=== PATIENT | male | born 1955 | race Caucasian/White ===

== ENCOUNTER → 2018-06-05 09:59 | Outpatient (CLI) | payer BC, SELFPAY ==
[2018-06-05 14:43] VITALS: PULSE 72; PULSE 78
== END ==
PROVIDERS: PCP Physician Assistant; Visit Provider Internal Medicine Cardiovascular Disease
DX: I42.9 Cardiomyopathy, unspecified (principal)
CPT/HCPCS: 94060; 94640; 94726; 94729

== ENCOUNTER → 2019-02-20 10:10 | Outpatient (CLI) | payer BC, SELFPAY ==
--- NOTE | 2019-02-20 10:16 | XR_ITS ---
EXAM: XR lumbar spine min 4V HISTORY: ITS.REASON: Low back pain ORDERING PHYSICIAN: MANUEL Ortiz PATIENT AGE: 63 years COMPARISON: 12/31/2015 FINDINGS: There is normal alignment. No acute fracture or dislocation. Small anterior osteophytes are present at L5 L4 L3 L2 and L1. These are somewhat more prominent than when compared to the previous exam. The disc spaces are well-preserved. IMPRESSION: Degenerative changes with osteophytosis which is slightly worse.
[2019-02-20 14:22] LABS: Basophils % 0.4 % (0.1-2.0); Eosinophils # 0.2 K/mm3 (0.0-0.4); Eosinophils % 2.7 % (0.1-12.0); Hematocrit 52.2 % (42.0-52.0); Hemoglobin 17.8 g/dL (14.1-18.0); Lymphocytes # 2.2 K/mm3 (0.7-4.5); Lymphocytes % 25.7 % (10-50); Mean Corpuscular HGB Conc 34.1 g/dL (31.8-35.4); Mean Corpuscular Hemoglobin 30.7 pg (27.0-31.2); Mean Corpuscular Volume 90.1 fl (80-94); Mean Platelet Volume 8.1 fl (7.4-10.4); Monocytes # 0.6 K/mm3 (0.1-1.0); Monocytes % 7.2 % (1.7-9.3); Neutrophils # 5.4 K/mm3 (1.8-7.8); Platelet Count 312 K/mm3 (142-424); Red Blood Count 5.79 M/mm3 (4.60-6.20); White Blood Count 8.5 K/mm3 (4.8-10.8)
[2019-02-20 15:33] LABS: Alanine Aminotransferase 35 U/L (12-78); Albumin/Globulin Ratio 1.2 (1.1-1.8); Alkaline Phosphatase 78 U/L (46-116); Anion Gap 17.4 mEq/L (5-15); Aspartate Amino Transferase 22 U/L (15-37); Bilirubin,Total 0.9 mg/dL (0.2-1.0); Blood Urea Nitrogen 11 mg/dL (7-18); Calcium 9.8 mg/dL (8.5-10.1); Carbon Dioxide 27 mmol/L (21.0-32.0); Chloride 100 mmol/L (98-107); Chol/HDL Ratio 4.1 (1-3.5); Cholesterol 248 mg/dL (140-200); Creatinine,Serum 0.99 mg/dL (0.70-1.30); Estimated Glomerular Filt Rate 77 ml/min (>60); GFR (African American) 93 ML/MIN (>60); Globulin 3.4 gm/dl (1.3-3.2); Glucose 111 mg/dL (74-106); HDL Cholesterol 61 mg/dL (27-67); LDL Cholesterol 158 mg/dL (0-130); Potassium 4.4 mmoL/L (3.5-5.1); Sodium 140 mmol/L (136-145); T4 (Thyroxine) 8.9 ug/dl (4.7-13.3); Thyroid Stimulating Hormone 0.89 uIU/ml (0.358-3.740); Total Protein,Serum 7.4 gm/dL (6.4-8.2); Triglycerides 147 mg/dL (30-200); VLDL Cholesterol 29 mg/dL (0-40)
[2019-02-23 20:39] LABS: PSA, Free 0.42 ng/mL; Prostate Specific Ag 3.3 ng/mL (0.0-4.0); Vitamin D 25 Hydroxy 18.8 ng/mL (30.0-100.0)
== END ==
PROVIDERS: PCP Emergency Medicine; Visit Provider Physician Assistant
DX: M54.5 Low back pain (principal); I10 Essential (primary) hypertension
CPT/HCPCS: 72110; 80053; 80061; 82652; 84153; 84154; 84436; 84443; 85025

== ENCOUNTER → 2019-03-02 10:27 | Outpatient (CLI) | payer BC, SELFPAY | PROVIDERS: PCP Emergency Medicine; Visit Provider Internal Medicine Cardiovascular Disease | DX: I48.92 Unspecified atrial flutter (principal); R06.09 Other forms of dyspnea; G40.909 Epilepsy, unspecified, not intractable, without status epilepticus; G47.33 Obstructive sleep apnea (adult) (pediatric); I10 Essential (primary) hypertension; J44.9 Chronic obstructive pulmonary disease, unspecified; K21.9 Gastro-esophageal reflux disease without esophagitis; R60.9 Edema, unspecified; F17.200 Nicotine dependence, unspecified, uncomplicated | CPT/HCPCS: 36415; 83880; 93270 ==

== ENCOUNTER → 2019-03-05 12:59 | Outpatient (CLI) | payer BC, SELFPAY ==
--- NOTE | 2019-03-05 13:06 | MR_ITS ---
MR lumbar spine wo con, MR 3-d myelogram/MRCP HISTORY: LBP XYRS. LT leg pain, numbness, and tingling. ITS.REASON: back pain ORDERING PHYSICIAN: MANUEL Ortiz PATIENT AGE: 63 years Comparison: X-ray 02-20-19. MRI 02-12-16. TECHNIQUE: Standard multiplanar multiecho sequences are performed without contrast. 3-D MIP and myelographic images are also rendered and reviewed FINDINGS: There is normal alignment. The spinal cord ends at the L1 level. T11-T12: Mild degenerative disc disease with very minimal central disc protrusion without impingement. T12-L1: Mild degenerative disc disease. L1-L2: Unremarkable. L2-L3: Unremarkable. L3-L4: Unremarkable. L4-5: Mild concentric bulging disc. There is a new small to medium-sized broad-based right foraminal and right lateral disc protrusion with associated osteophyte with moderate right-sided foraminal narrowing. L5-S1: There is a small left paracentral disc protrusion/herniation abutting the anteromedial aspect of the left S1 nerve root. Previously there was a small disc protrusion at this area. This is now slightly larger and with increased T2 signal. T2 hyperintensity once again noted involving the L3 and L4 vertebral body inlet to the previous exam consistent with hemangiomas. IMPRESSION: 1. L4-5: Mild concentric bulging disc. There is a new small to medium-sized broad-based right foraminal and right lateral disc protrusion with associated osteophyte with moderate right-sided foraminal narrowing. 2. L5-S1: There is a small left paracentral disc protrusion/herniation abutting the anteromedial aspect of the left S1 nerve root. Previously there was a small disc protrusion at this area. This is now slightly larger and with increased T2 signal
== END ==
PROVIDERS: PCP Physician Assistant; Visit Provider Physician Assistant
DX: M54.16 Radiculopathy, lumbar region (principal)
CPT/HCPCS: 72148; 76376; 93270

== ENCOUNTER → 2019-03-14 12:25 | Outpatient (CLI) | payer BC, SELFPAY ==
--- NOTE | 2019-03-14 12:27 | CA_ITS ---
PROCEDURE: 2-D M-mode and color Doppler study INDICATIONS FOR THE TEST: Chest pain COPD+ Heart Murmur Tobacco Smoking+ Palpitations Fatigue Syncope Edema+ Hypertension+Diabetes Mellitus Rheumatic Fever SOB+MOCTEZUMA+Obesity Hyperlipidemia+ Family History HD Additional History BALDO, ABLATION 2018, AFIB PATIENT INFORMATION HEIGHT: 69 WEIGHT:186 GENDER: Male B/P:109/69 2-D/M-MODE INTERPRETATION: 2-D MEASUREMENTS OBSERVED VALUES IN CMS Right Ventricular Dimension (RVDd) 3.0 Interventricular Septum (Thickness)(IVsd) 1.1 Left Ventricular Internal Dimensions(LVIDd) 4.4 Left Ventricular Posterior Wall (Thickness)(LVPWd) 0.8 Aortic Root 3.3 Aortic Cusp Separation 2.1 Left Atrial Dimensions (LAD) 3.9 2D 1. Left atrium is mildly enlarged, left ventricle is normal size, there is mild concentric left ventricular hypertrophy, visually estimated ejection fraction 55% with no regional wall motion abnormality. 2. The right atrium and right ventricle are mildly enlarged with normal contractility. 3. The aortic valve is minimally thickened and fibrosed. 4. The mitral and tricuspid valve leaflets are minimally thickened. 5. The pulmonic valve is poorly visualized. 6. No significant pericardial effusion noted. DOPPLER INTERROGATION: Doppler interrogation of the aortic, mitral and tricuspid valvular presence of mild mitral and tricuspid regurgitation, tricuspid regurgitation jet velocity is inadequate for calculation of the right ventricular systolic pressure, grade 1 diastolic dysfunction seen without tissue Doppler evidence of raised left atrial pressure. Inferior vena cava is not well visualized. CONCLUSION: 1. Biatrial enlargement, normal left ventricular size, mild concentric left ventricular hypertrophy, visually estimated ejection fraction 55% with no regional wall motion abnormality, grade 1 diastolic dysfunction seen without tissue Doppler evidence of raised left atrial pressure. 2. Mildly enlarged right ventricle with normal contractility. 3. Mild mitral and tricuspid regurgitation, tricuspid regurgitation jet velocity is inadequate for calculation of the right ventricular systolic pressure, inferior vena cava is not well visualized. 4. No significant pericardial effusion noted.
== END ==
PROVIDERS: PCP Emergency Medicine; Visit Provider Internal Medicine Cardiovascular Disease
DX: R06.09 Other forms of dyspnea (principal); R60.9 Edema, unspecified; I48.92 Unspecified atrial flutter; G40.909 Epilepsy, unspecified, not intractable, without status epilepticus; G47.33 Obstructive sleep apnea (adult) (pediatric); I10 Essential (primary) hypertension; J44.9 Chronic obstructive pulmonary disease, unspecified; K21.9 Gastro-esophageal reflux disease without esophagitis; F17.200 Nicotine dependence, unspecified, uncomplicated
CPT/HCPCS: 93306

== ENCOUNTER → 2019-03-26 10:50 | Outpatient (POV) | payer BC, SELFPAY ==
[2019-03-26 10:59] VITALS: BP 188/95; PULSE 97; RESP 18; O2SAT 98; BMI 27.3
--- NOTE | 2019-03-26 11:19 | HMH.PMCON ---
Assessment and Plan (1) Lumbar degenerative disc disease Current visit: No Status: Chronic Category: Medical Code(s): M51.36 - Other intervertebral disc degeneration, lumbar region (2) Lumbar radiculopathy Current visit: No Status: Chronic Category: Medical Code(s): M54.16 - Radiculopathy, lumbar region (3) Lumbar radiculopathy, chronic Current visit: No Status: Chronic Category: Medical Code(s): M54.16 - Radiculopathy, lumbar region - Assessment and plan all Dx Assessment and Plan for all problems:: We will schedule the patient for an L4-L5 lumbar epidural steroid injection. I believe it would be beneficial given his symptomology. Patient and I had a discussion in regards to the procedure and he understands and would like to move forward. Patient denies any anticoagulation therapy. He is continuing a home stretching program. He has had this pain for over 6 months. Patient has failed other conservative measures. Dr. Capone has reviewed this note and agrees with this plan of care. This note was dictated using voice recognition software and may contain errors or omissions HPI - Data of Consult Consult date: 03/26/19 Requesting Physician: Suellen Sims APRN Primary Care Provider: MANUEL Ortiz - Consult Narrative Reason for consult: Back pain History of present illness: Mr. Daily is a 63 year old male who presents today for consultation in regards to his low back pain. Patient has had recent physical therapy with no relief of his back pain. He states his pain is been around for about 30 years and usually comes and goes however at this time it seems to worsen and remained. He is unable to take anti-inflammatories due to heart problems. He is not on any anticoagulation therapy. Patient had a recent MRI showing disc bulge at L4-L5 L5-S1 along with a herniation abutting the anterior medial aspect of the left S1 nerve root. Most of the patient's pain is in his left side rating down to his left toes. Patient does have a positive left straight leg raise test. Patient does have an appointment with Dr. Gamez. Patient and I discussed epidural injections. Dr. Capone has reviewed this note and agrees with this plan of care. This note was dictated using voice recognition software and may contain errors or omissions to CC: Suellen Sims APRN [facility] History I have reviewed the patient's past medical history: Yes Medical History: Reports:: Arrhythmia, Atrial Fibrillation, Gastroesophageal Reflux Disease(GERD), Hyperlipidemia, Myocardial Infarction, Seizures *Have you ever received a pneumonia vaccine?: No *Have you received a flu vaccine this season?: No Other Medical History: Reports: Arthritis, Other Other Surgeries: Yes: No Previous Surgery, Cardiac Catheterization, Colonoscopy Amputation: No Fractures: Yes - *Social History Smoking Status: Current every day smoker Tobacco Type: cigarettes # Packs/Day (cigarettes): 1 #Yrs smoked (if former smoker): 45 Alcohol Intake: never Alcohol Intake Frequency:: holidays/special occasions only Substance Use Type: denies use *Occupational Status:: other Housing: house Household Members: none *Travel in the last 8 weeks: None Family Hx:: Heart Attack, Diabetes Review of Systems - Review of Systems ROS General: no recent weight change, no fever, no sleep disturbances Respiratory: no cough, no shortness of air, no recurring pulmonary infections Cardiovascular/Peripheral Vascular: No chest pain, No palpitations, no edema, no shortness of breath. Gastrointestinal: no incontinence, normal bowel movements reported Genitourinary: no incontinence Musculoskeletal: Back pain, leg pain Psychiatric: normal mood/ affect Neurological: [denies weakness in extremities], [denies balance issues] Meds Home Medications Medication Instructions Recorded Confirmed Type esomeprazole magnesium 20 mg 20 mg PO DAILY #90 tab 02/20/19 03/26/19 Rx t
--- NOTE | 2019-03-26 11:22 | P.CONS_ITS ---
Assessment and Plan (1) Lumbar degenerative disc disease Current visit: No Status: Chronic Category: Medical Code(s): M51.36 - Other intervertebral disc degeneration, lumbar region (2) Lumbar radiculopathy Current visit: No Status: Chronic Category: Medical Code(s): M54.16 - Radiculopathy, lumbar region (3) Lumbar radiculopathy, chronic Current visit: No Status: Chronic Category: Medical Code(s): M54.16 - Radiculopathy, lumbar region - Assessment and plan all Dx Assessment and Plan for all problems:: We will schedule the patient for an L4-L5 lumbar epidural steroid injection. I believe it would be beneficial given his symptomology. Patient and I had a discussion in regards to the procedure and he understands and would like to move forward. Patient denies any anticoagulation therapy. He is continuing a home stretching program. He has had this pain for over 6 months. Patient has failed other conservative measures. Dr. Capone has reviewed this note and agrees with this plan of care. This note was dictated using voice recognition software and may contain errors or omissions HPI - Data of Consult Consult date: 03/26/19 Requesting Physician: Suellen Sims APRN Primary Care Provider: MANUEL Ortiz - Consult Narrative Reason for consult: Back pain History of present illness: Mr. Daily is a 63 year old male who presents today for consultation in regards to his low back pain. Patient has had recent physical therapy with no relief of his back pain. He states his pain is been around for about 30 years and usually comes and goes however at this time it seems to worsen and remained. He is unable to take anti-inflammatories due to heart problems. He is not on any anticoagulation therapy. Patient had a recent MRI showing disc bulge at L4-L5 L5-S1 along with a herniation abutting the anterior medial aspect of the left S1 nerve root. Most of the patient's pain is in his left side rating down to his left toes. Patient does have a positive left straight leg raise test. Patient does have an appointment with Dr. Gamez. Patient and I discussed epidural injections. Dr. Capone has reviewed this note and agrees with this plan of care. This note was dictated using voice recognition software and may contain errors or omissions to CC: Suellen Sims APRN [facility] History I have reviewed the patient's past medical history: Yes Medical History: Reports:: Arrhythmia, Atrial Fibrillation, Gastroesophageal Reflux Disease(GERD), Hyperlipidemia, Myocardial Infarction, Seizures *Have you ever received a pneumonia vaccine?: No *Have you received a flu vaccine this season?: No Other Medical History: Reports: Arthritis, Other Other Surgeries: Yes: No Previous Surgery, Cardiac Catheterization, Colonoscopy Amputation: No Fractures: Yes - *Social History Smoking Status: Current every day smoker Tobacco Type: cigarettes # Packs/Day (cigarettes): 1 #Yrs smoked (if former smoker): 45 Alcohol Intake: never Alcohol Intake Frequency:: holidays/special occasions only Substance Use Type: denies use *Occupational Status:: other Housing: house Household Members: none *Travel in the last 8 weeks: None Family Hx:: Heart Attack, Diabetes Review of Systems - Review of Systems ROS General: no recent weight change, no fever, no sleep disturbances Respiratory: no cough, no shortness of air, no recurring pulmonary infections Cardiovascular/Peripheral Vascular: No chest pain, No palpitations, no edema, no shortness of breath. Gastrointestinal: no incontinence, normal bowel mov
== END ==
PROVIDERS: PCP Physician Assistant; Visit Provider Clinical Nurse Specialist Family Health
DX: M51.16 Intervertebral disc disorders with radiculopathy, lumbar region (principal)
CPT/HCPCS: 99202

== ENCOUNTER → 2019-04-24 10:00 | Outpatient (CLI) | payer BC, SELFPAY ==
[2019-04-24 11:42] LABS: Alanine Aminotransferase 46 U/L (12-78); Albumin Level 3.8 gm/dL (3.4-5.0); Alkaline Phosphatase 124 U/L (46-116); Aspartate Amino Transferase 23 U/L (15-37); Bilirubin,Direct 0.2 mg/dL (0.0-0.2); Bilirubin,Indirect 0.4 mg/dL (0.0-0.9); Bilirubin,Total 0.6 mg/dL (0.2-1.0); Chol/HDL Ratio 2.2 (1-3.5); Cholesterol 147 mg/dL (140-200); HDL Cholesterol 68 mg/dL (27-67); LDL Cholesterol 66 mg/dL (0-130); Total Protein,Serum 7.2 gm/dL (6.4-8.2); Triglycerides 66 mg/dL (30-200); VLDL Cholesterol 13 mg/dL (0-40)
== END ==
PROVIDERS: Visit Provider Internal Medicine Cardiovascular Disease
DX: R06.09 Other forms of dyspnea (principal); R60.9 Edema, unspecified; G40.909 Epilepsy, unspecified, not intractable, without status epilepticus; I10 Essential (primary) hypertension; I48.0 Paroxysmal atrial fibrillation; J44.9 Chronic obstructive pulmonary disease, unspecified; K21.9 Gastro-esophageal reflux disease without esophagitis; F17.200 Nicotine dependence, unspecified, uncomplicated; G47.33 Obstructive sleep apnea (adult) (pediatric)
CPT/HCPCS: 36415; 80061; 80076

== ENCOUNTER → 2019-04-24 10:10 | Outpatient (POV) | payer BC, SELFPAY ==
[2019-04-24 10:34] VITALS: BP 137/88; PULSE 69; RESP 18; O2SAT 99; BMI 24.3
--- NOTE | 2019-04-24 10:47 | HMH.PAINSOAP ---
[facility] Pain Management SOAP Note Subjective:: Patient is a pleasant 63-year-old white female who presents today for follow-up after lumbar epidural steroid injection. Patient states he got good relief for a week and a several days after the injection. He rates his pain today 5 out of 10. We talked about typically doing a set of 3 injections however he is uninterested in any injective therapy that we can offer her physical therapy or any other modes of care we can provide. He states he is been seen by a neurosurgeon and was deemed not a candidate for surgery. ROS General: no recent weight change, no fever, no sleep disturbances Respiratory: no cough, no shortness of air, no recurring pulmonary infections Cardiovascular/Peripheral Vascular: No chest pain, No palpitations, no edema, no shortness of breath. Gastrointestinal: no incontinence, normal bowel movements reported Genitourinary: no incontinence Musculoskeletal: Back pain, leg pain Psychiatric: normal mood/ affect Neurological: [denies weakness in extremities], [denies balance issues] Objective:: Physical Exam General: Alert and oriented x3, no acute distress, pleasant and cooperative, [on room air] Lungs: Resps E/U, Symmetrical chest expansion, Eyes: PERRL Musculoskeletal: Flexion and extension of lumbar spine somewhat guarded secondary to pain, deep tendon reflexes normal, strength in upper and lower extremities [5/5], slightly antalgic gait noted Neurological: speech clear, chief strategy officer equal, no gross sensory deficits Assessment:: Degenerative disc disease lumbar spine with lumbar radiculopathy Plan:: Patient is uninterested in any further services that we can provide. He has been instructed that he can call our office if the changes his mind. Dr. Capone has reviewed this note and agrees with this plan of care. This note was dictated using voice recognition software and may contain errors or omissions Pain Management Hx Components *Have you ever received a pneumonia vaccine?: No *Have you received a flu vaccine this season?: Yes - *Social History *Occupational Status:: other *Travel in the last 8 weeks: None
== END ==
PROVIDERS: PCP Physician Assistant; Visit Provider Clinical Nurse Specialist Family Health
DX: M51.16 Intervertebral disc disorders with radiculopathy, lumbar region (principal)
CPT/HCPCS: 99212

== ENCOUNTER → 2019-05-09 08:52 | Outpatient (CLI) | payer BC, SELFPAY ==
[2019-05-09 10:17] LABS: Gamma Glutamyl Transpeptidase 41 U/L (15-85)
== END ==
PROVIDERS: Physician Assistant; Visit Provider Internal Medicine
DX: R74.8 Abnormal levels of other serum enzymes (principal)
CPT/HCPCS: 36415; 82977

== ENCOUNTER → 2019-10-30 13:30 | Outpatient (CLI) | payer BC, SELFPAY ==
[2019-10-30 13:37] LABS: Basophils # 0.1 K/mm3 (0-0.2); Basophils % 0.6 % (0.1-2.0); Eosinophils # 0.3 K/mm3 (0.0-0.4); Eosinophils % 3.1 % (0.1-12.0); Hematocrit 48.5 % (42.0-52.0); Hemoglobin 15.5 g/dL (14.1-18.0); Lymphocytes # 1.9 K/mm3 (0.7-4.5); Lymphocytes % 22.8 % (10-50); Mean Corpuscular Hemoglobin 30.4 pg (27.0-31.2); Mean Platelet Volume 8.9 fl (7.4-10.4); Monocytes # 0.6 K/mm3 (0.1-1.0); Monocytes % 7.1 % (1.7-9.3); Neutrophils # 5.4 K/mm3 (1.8-7.8); Neutrophils % 66.5 % (37.0-80.0); Platelet Count 277 K/mm3 (142-424); Red Blood Count 5.11 M/mm3 (4.60-6.20); Red Cell Distribution Width 13.2 % (11.5-17.5); White Blood Count 8.2 K/mm3 (4.8-10.8)
[2019-10-30 14:40] LABS: Alanine Aminotransferase 33 U/L (21-72); Albumin Level 3.8 g/dL (3.4-5.0); Albumin/Globulin Ratio 1.3 (1.1-1.8); Alkaline Phosphatase 102 U/L (46-116); Anion Gap 14.1 mEq/L (5-15); Aspartate Amino Transferase 22 U/L (15-37); Bilirubin,Total 0.4 mg/dL (0.2-1.0); Blood Urea Nitrogen 11 mg/dL (7-18); Calcium 9.4 mg/dL (8.5-10.1); Carbon Dioxide 28 mmol/L (21.0-32.0); Chloride 109 mmol/L (98-107); Chol/HDL Ratio 2.3 (1-3.5); Cholesterol 123 mg/dL (140-200); Creatinine,Serum 0.81 mg/dL (0.70-1.30); Estimated Glomerular Filt Rate 97 ml/min (>60); GFR (African American) 117 ML/MIN (>60); Globulin 2.9 gm/dl (1.3-3.2); Glucose 110 mg/dL (74-106); HDL Cholesterol 54 mg/dL (27-67); LDL Cholesterol 61 mg/dL (0-130); Potassium 5.1 mmoL/L (3.5-5.1); Sodium 146 mmol/L (137-145); T4 (Thyroxine) 6.3 ug/dl (4.7-13.3); Thyroid Stimulating Hormone 1.25 uIU/ml (0.358-3.740); Total Protein,Serum 6.7 g/dL (6.4-8.2); Triglycerides 39 mg/dL (30-200); VLDL Cholesterol 8 mg/dL (0-40)
[2019-10-31 16:30] LABS: Vitamin B12 329 pg/mL (232-1245)
== END ==
PROVIDERS: Visit Provider Physician Assistant
DX: I10 Essential (primary) hypertension (principal); E55.9 Vitamin D deficiency, unspecified; D51.9 Vitamin B12 deficiency anemia, unspecified
CPT/HCPCS: 80053; 80061; 82607; 82652; 84436; 84443; 85025

== ENCOUNTER 2023-08-31 16:22 | Emergency (ER) | payer MEDICARE, BC, SELFPAY ==
[2023-08-31] VITALS (7 sets, daily range): BP systolic 118–151; BP diastolic 59–99; PULSE 49–69; RESP 16; TEMP 36.3; O2SAT 99–100; BMI 22.1
--- NOTE | 2023-08-31 16:32 | PC.NURSE ---
Handed off report Eliseo FOSTER
--- NOTE | 2023-08-31 17:06 | CT_ITS ---
PROCEDURE INFORMATION: Exam: CT Abdomen And Pelvis With Contrast Exam date and time: 08/31/2023 5:44 PM Age: 68 years old Clinical indication: Constipation; Additional info: Constipation, no flatus 1d, low abd pain TECHNIQUE: Imaging protocol: Computed tomography of the abdomen and pelvis with contrast. Radiation optimization: All CT scans at this facility use at least one of these dose optimization techniques: automated exposure control; mA and/or kV adjustment per patient size (includes targeted exams where dose is matched to clinical indication); or iterative reconstruction. Contrast material: ISOVUE; Contrast volume: 75 ml; Contrast route: IV; REPORTING DATA: Count of CT and Cardiac NM exams in prior 12 months: This patient has received 0 known CTs and 0 known cardiac nuclear medicine studies in the 12 months prior to the current study. COMPARISON: FINDINGS: Coronary arteries: Mild coronary artery calcification. Liver: Scattered low-density lesions are mostly consistent with simple cysts although a couple of lesions are too small to characterize. No hepatomegaly. Gallbladder and bile ducts: Normal. No calcified stones. No ductal dilation. Pancreas: Normal. No ductal dilation. Spleen: Normal. No splenomegaly. Adrenal glands: Normal. No mass. Kidneys and ureters: Normal. No hydronephrosis. Stomach and bowel: Large amount of fecal material distends the rectum. No rectal wall thickening. Moderate fecal material throughout the remainder of the colon. No bowel obstruction. Appendix: No evidence of appendicitis. Intraperitoneal space: Unremarkable. No free air. No significant fluid collection. Vasculature: I mild/moderate aortoiliac atherosclerotic disease without aneurysm. Lymph nodes: Unremarkable. No enlarged lymph nodes. Urinary bladder: Moderately distended bladder. Reproductive: Unremarkable as visualized. Bones/joints: Mild degenerative change of the right sacroiliac joint. Mild multilevel lower thoracic spine and lumbar spine degenerative change. Soft tissues: Unremarkable. IMPRESSION: 1. Large amount of fecal material distends the rectum. No rectal wall thickening. Moderate fecal material throughout the remainder of the colon. No findings to suggest stercoral colitis. 2. No bowel obstruction. 3. Moderately distended bladder.
--- NOTE | 2023-08-31 17:08 | HMH.EDGENADL ---
Discharge Plan Disposition Patient Disposition: Home, Self-Care Chief Complaint: Abdominal Pain Prescriptions Prescriptions: No Action vitamin B complex [B Complex-Vitamin B12] Tablet 1 tab PO DAILY Qty: 90 0RF nicotine 14 mg/24 hr patch 24 hour 1 patch TRANSDERMA DAILY Qty: 28 0RF Nexium 24HR 20 mg tablet,delayed release (DR/EC) 20 mg PO DAILY Qty: 90 3RF azithromycin [Zithromax Z-Joce] 250 mg tablet See Rx Instructions PO .COMPLEX Qty: 6 0RF Rx Instructions: take 500 mg today (day 1), then 250 mg for 4 days (days 2-5) PO oxycodone-acetaminophen [Percocet] 5-325 mg tablet 1 tab PO BID PRN (Reason: pain) Qty: 60 0RF gabapentin 600 mg tablet 600 mg PO TID Qty: 90 1RF levetiracetam 500 mg tablet See Rx Instructions .ROUTE .COMPLEX Qty: 180 0RF Dose Instruction: TAKE 1 TABLET TWICE DAILY FOR SEIZURES Rx Instructions: TAKE 1 TABLET TWICE DAILY FOR SEIZURES ergocalciferol (vitamin D2) [Vitamin D2] 1,250 mcg (50,000 unit) capsule See Rx Instructions .ROUTE .COMPLEX Qty: 51 0RF Dose Instruction: TAKE 1 CAPSULE BY MOUTH EVERY WEEK Rx Instructions: TAKE 1 CAPSULE BY MOUTH EVERY WEEK cholecalciferol (vitamin D3) 25 mcg (1,000 unit) capsule See Rx Instructions .ROUTE .COMPLEX Qty: 90 0RF Dose Instruction: TAKE 1 CAPSULE BY MOUTH EVERY DAY Rx Instructions: TAKE 1 CAPSULE BY MOUTH EVERY DAY Breo Ellipta 100-25 mcg/dose blister with device See Rx Instructions .ROUTE .COMPLEX Qty: 60 1RF Dose Instruction: INHALE 1 PUFF BY MOUTH ONCE DAILY Rx Instructions: INHALE 1 PUFF BY MOUTH ONCE DAILY atorvastatin 80 mg tablet See Rx Instructions .ROUTE .COMPLEX Qty: 90 0RF Dose Instruction: TAKE 1 TABLET BY MOUTH EVERY DAY Rx Instructions: TAKE 1 TABLET BY MOUTH EVERY DAY bisoprolol fumarate 5 mg tablet See Rx Instructions .ROUTE .COMPLEX Qty: 90 0RF Dose Instruction: TAKE 1 TABLET BY MOUTH EVERY DAY Rx Instructions: TAKE 1 TABLET BY MOUTH EVERY DAY omeprazole 20 mg capsule,delayed release(DR/EC) See Rx Instructions .ROUTE .COMPLEX Qty: 30 0RF Dose Instruction: TAKE 1 CAPSULE BY MOUTH ONCE DAILY Rx Instructions: TAKE 1 CAPSULE BY MOUTH ONCE DAILY Spiriva Respimat 2.5 mcg/actuation mist See Rx Instructions .ROUTE .COMPLEX Qty: 4 0RF Dose Instruction: INHALE 2 PUFFS BY MOUTH EVERY DAY Rx Instructions: INHALE 2 PUFFS BY MOUTH EVERY DAY aspirin 81 mg tablet,delayed release (DR/EC) 81 mg PO DAILY fluticasone propionate 50 mcg/actuation spray,suspension 2 spray intranasal DAILY PRN (Reason: allergies) Rx Instructions: administer 2 sprays into each nostril at bedtime Referrals Follow up/Referrals: Ector Dodson [Primary Care Provider] - See instructions Activity Restrictions/Add. Instructions Additional Instructions/Restrictions: At this time it was felt you are safe to be discharged home. If new or worsening symptoms please do not hesitate to return the emergency department. If symptoms persist please follow-up with your family doctor as you are able. Clinical Impressions Clinical Impression: Constipation, Obstruction of rectum Instructions Patient Instructions: DI for Acute Abdominal Pain Discharge ED Provider: Jesus Naranjo General Adult HPI General Chief complaint: Abdominal Pain Stated complaint: Abd Pain Time Seen by Provider: 08/31/23 16:45 Mode of Arrival: EMS Source of Information: Patient Limitations: No Limitations Description of Symptoms (Recalled from ER Triage Doc. by RN): Presents to ED via EMS with c/o 8/10 lower abdominal pain since this morning. Patient states he is unsure when his LBM was. He feels like something is stuck . 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 Patient reports +N but denies V/D. History of Present Illness HPI narrative: Patient is a 68-year-old male with no pertinent past medical history who presents e
--- NOTE | 2023-08-31 17:15 | PC.NURSE ---
pt was given a blanket turned light off call light at bs
[2023-08-31 17:16] LABS: Basophils # 0.1 K/mm3 (0-0.2); Basophils % 0.3 % (0.1-2.0); Eosinophils # 0.3 K/mm3 (0.0-0.4); Eosinophils % 1.7 % (0.1-12.0); Hematocrit 43.3 % (42.0-52.0); Hemoglobin 14.9 g/dL (14.1-18.0); Lymphocytes # 2.4 K/mm3 (0.7-4.5); Lymphocytes % 14.7 % (10-50); Mean Corpuscular HGB Conc 34.3 g/dL (31.8-35.4); Mean Corpuscular Hemoglobin 31.2 pg (27.0-31.2); Mean Corpuscular Volume 90.9 fl (80-94); Mean Platelet Volume 8.4 fl (7.4-10.4); Monocytes # 0.6 K/mm3 (0.1-1.0); Monocytes % 3.5 % (1.7-9.3); Neutrophils # 13.4 K/mm3 (1.8-7.8); Neutrophils % 79.9 % (37.0-80.0); Platelet Count 248 K/mm3 (142-424); Red Blood Count 4.77 M/mm3 (4.60-6.20); Red Cell Distribution Width 12.9 % (11.5-17.5); White Blood Count 16.7 K/mm3 (4.8-10.8)
[2023-08-31 17:17] LABS: MANUAL DIFFERENTIAL MANUAL DIFFERENTIAL (MANUAL DIFF)
[2023-08-31 17:18] LABS: Chloride 102 mmol/L (98-107); Sodium 136 mmol/L (136-145)
[2023-08-31 17:20] LABS: Blood Urea Nitrogen 12 mg/dl (9-20); Creatinine Clearance Estimated 70 mL/min (50-200); Estimated Glomerular Filt Rate 113 ml/min (>60); GFR (African American) 137 ML/MIN (>60)
[2023-08-31 17:21] LABS: Alanine Aminotransferase 26 U/L (12-78); Albumin Level 4.4 g/dl (3.5-5.0); Albumin/Globulin Ratio 1.6 (1.1-1.8); Alkaline Phosphatase 73 U/L (38-126); Aspartate Amino Transferase 31 U/L (17-59); Bilirubin,Total 0.6 mg/dl (0.2-1.3); Calcium 9.4 mg/dl (8.4-10.2); Carbon Dioxide 28 mmol/L (22.0-30.0); Globulin 2.7 g/dL (1.3-3.2); Glucose 118 mg/dl (74-100); Lipase 77 U/L (23-300); Total Protein,Serum 7.1 g/dl (6.3-8.2)
--- NOTE | 2023-08-31 17:40 | PC.NURSE ---
patient gone to CT at this time.
[2023-08-31 17:51] LABS: Lymphocytes % 24 % (10-50); Monocytes % 2 % (2-9); Neutrophils % 74 % (42-76); Platelet Estimate Normal; RBC Morphology Normal; Total Cells Counted 100
[2023-08-31 18:01] LABS: Microscopic, Urine URINE MICROSCOPIC (MICROSCOPIC)
[2023-08-31 18:03] LABS: Appearance,Urine CLEAR (Clear); Bilirubin,Urine Negative (Negative); Blood, Urine Negative (Negative); Color,Urine YELLOW (Yellow); Glucose,Urine (UA) Negative (Negative); Ketones,Urine Negative (Negative); Leukocyte Esterase,Urine Negative (Negative); Nitrate,Urine Negative (Negative); PH,Urine 6.5 (5.0-8.5); Protein,Urine Negative (Negative); Urobilinogen,Urine 0.2 EU/dl (0.2)
[2023-08-31 19:17] LABS: Amorphous Sediment,Urine Trace /lpf; Squamous Epithelial Cell,Urine Occasional #/hpf (0-5)
== END 2023-08-31 19:52 | disposition home or self-care (01) ==
PROVIDERS: Emergency Provider Emergency Medicine; PCP Family Medicine
DX: R10.30 Lower abdominal pain, unspecified (principal); R11.0 Nausea; K59.00 Constipation, unspecified; G40.909 Epilepsy, unspecified, not intractable, without status epilepticus; F17.210 Nicotine dependence, cigarettes, uncomplicated
CPT/HCPCS: 74177; 80053; 81001; 83690; 85007; 85025; 96374; 99285; J0131; Q9967